=== PATIENT | male | born 1970 | race Caucasian/White ===

== ENCOUNTER → 2017-03-14 | Outpatient (CLI) | payer OTHER ==
[~2017-03-14] MED LIST: ALTACE 5MG5 MG PO; ASPI325T6 PO; COLACE 100100 MG/CAP PO; FERROUS SU325 MG/TAB PO; FOLIC ACID 40400 MCG PO; NORCO 325 MG-7.1 TAB PO; ROXICODONE 55 MG/TAB PO; TRICOR145 MG PO; TYLENOL 500MG500 MG PO; VITAMIN C500 MG; ZOCOR 40MG40 MG PO
[2017-03-14 09:05] LABS: HEMATOCRIT 41.8 % (42.0-52.0); HEMOGLOBIN 14.7 g/dl (13.5-18.0); MEAN CELL VOLUME 84 fl (80.0-100.0); MEAN CORPUSCULAR HEMOGLOBIN 30 pg (27.0-31.0); MEAN CORPUSCULAR HGB CONC 35 g/dl (33.0-37.0); MEAN PLATELET VOLUME 9.7 fl (7.4-10.4); PLATELET COUNT 247 K/mm3 (130-400); RED BLOOD COUNT 4.97 M/mm3 (4.20-5.60); WHITE BLOOD COUNT 7.8 K/mm3 (4.8-10.8)
[2017-03-14 09:25] LABS: ERYTHROCYTE SEDIMENTATION RATE 18 mm/hr (0-15)
== END ==
LOC: COL.LAB 08:25
PROVIDERS: Orthopaedic Surgery
DX: Z01.812 Encounter for preprocedural laboratory examination (principal); M25.562 Pain in left knee

== ENCOUNTER → 2018-03-05 | Outpatient (CLI) | payer BC ==
[2018-03-05 17:16] LABS: HEMATOCRIT 40.5 % (42.0-52.0); HEMOGLOBIN 14.2 g/dl (13.5-18.0); MEAN CELL VOLUME 85 fl (80.0-100.0); MEAN CORPUSCULAR HEMOGLOBIN 30 pg (27.0-31.0); MEAN CORPUSCULAR HGB CONC 35 g/dl (33.0-37.0); MEAN PLATELET VOLUME 9.7 fl (7.4-10.4); PLATELET COUNT 256 K/mm3 (130-400); RED BLOOD COUNT 4.77 M/mm3 (4.20-5.60); REDCELL DISTRIBUTION WIDTH-CV 12.7 % (11.5-14.5)
[2018-03-05 17:24] LABS: ALBUMIN 4.2 gm/dL (3.5-5.0); BILIRUBIN,TOTAL 0.3 mg/dL (0.0-1.0); C-REACTIVE PROTEIN 1.1 mg/dL (0.0-0.9); CALCIUM 9.6 mg/dL (8.4-10.2); CREATININE, serum 0.74 mg/dL (0.66-1.25); POTASSIUM 3.9 mmol/L (3.4-5.0); TOTAL PROTEIN 8.2 gm/dL (6.4-8.2)
[2018-03-05 17:40] LABS: ERYTHROCYTE SEDIMENTATION RATE 27 mm/hr (0-15)
[2018-03-05 18:09] LABS: MUCOUS Present /lpf; PH 5 (5-8); SQUAMOUS EPITHELIAL 0-2 /hpf; URINE APPEARANCE Clear; URINE BACTERIA None Seen /hpf; URINE BILIRUBIN Negative (NEGATIVE); URINE BLOOD Negative (NEGATIVE); URINE COLOR Yellow; URINE GLUCOSE 3+ (NEGATIVE); URINE KETONE Negative (NEGATIVE); URINE LEUKOCYTE ESTERASE Negative (NEGATIVE); URINE NITRATE Negative (NEGATIVE); URINE PROTEIN(semi-quant) Negative (NEGATIVE); URINE RBC 0-2 /hpf; URINE UROBILINOGEN Negative (NEGATIVE); URINE WBC 0-2 /hpf
[2018-03-05 18:20] LABS: COLLECTION METHOD CLEAN CATCH
== END ==
LOC: COL.LAB 16:18
DX: M25.562 Pain in left knee (principal)

== ENCOUNTER → 2018-07-22 | Outpatient (CLI) | payer BC ==
[2018-07-22 16:54] LABS: SYNOVIAL FL. MONONUCLEAR 82.8 % (0-75); SYNOVIAL FLUID APPEARANCE HAZY; SYNOVIAL FLUID COLOR AMBER; SYNOVIAL FLUID RBC 5000 /mm3 (0-0); SYNOVIAL FLUID WBC 239 /mm3 (200-600)
== END ==
LOC: ZCOL.LAB 16:48
PROVIDERS: Orthopaedic Surgery Sports Medicine
DX: M25.562 Pain in left knee (principal)

== ENCOUNTER → 2018-07-22 | Outpatient (CLI) | payer BC ==
[2018-07-22 17:23] LABS: BASO % 0.4 % (0.0-2.0); EOS # 0.3 (0.0-0.7); EOS % 2.8 % (0-4.0); GRAN # 6.6 (1.4-6.5); HEMOGLOBIN 15.3 g/dl (13.5-18.0); LYMPH # 2.1 (1.2-3.4); LYMPH % 21.5 % (20.0-51.0); MEAN CELL VOLUME 86 fl (80.0-100.0); MEAN CORPUSCULAR HEMOGLOBIN 30 pg (27.0-31.0); MEAN CORPUSCULAR HGB CONC 35 g/dl (33.0-37.0); MEAN PLATELET VOLUME 9.6 fl (7.4-10.4); MONO # 0.9 (0.1-0.6); PLATELET COUNT 273 K/mm3 (130-400); RED BLOOD COUNT 5.09 M/mm3 (4.20-5.60); REDCELL DISTRIBUTION WIDTH-CV 13.2 % (11.5-14.5)
[2018-07-22 17:58] LABS: ERYTHROCYTE SEDIMENTATION RATE 14 mm/hr (0-15)
== END ==
LOC: COL.LAB 16:44
PROVIDERS: Orthopaedic Surgery Sports Medicine
DX: Z01.812 Encounter for preprocedural laboratory examination (principal); M25.562 Pain in left knee

== ENCOUNTER → 2018-10-14 | Outpatient (CLI) | payer BC | LOC: COL.LAB 15:03 | DX: Z96.652 Presence of left artificial knee joint (principal) ==

== ENCOUNTER 2018-10-16 13:56 | Outpatient (RCR) | payer BC | END 2018-10-20 11:37 | disposition home or self-care (01) | LOC: MKS.ESL.PT 13:56 | DX: Z47.1 Aftercare following joint replacement surgery (principal); Z96.652 Presence of left artificial knee joint ==

== ENCOUNTER 2019-01-20 09:00 | Outpatient (RCR) | payer BC | END 2019-01-24 | disposition still patient (30) | LOC: MKS.ESL.PT | DX: Z47.1 Aftercare following joint replacement surgery (principal); Z96.652 Presence of left artificial knee joint | CPT/HCPCS: G0283-GP ==

== ENCOUNTER 2019-02-10 09:00 | Outpatient (RCR) | payer BC | END 2019-04-28 | disposition still patient (30) | LOC: MKS.ESL.PT | DX: Z47.1 Aftercare following joint replacement surgery (principal); Z96.652 Presence of left artificial knee joint ==

== ENCOUNTER 2020-04-13 09:45 | Outpatient (RCR) | payer BC | END 2020-05-30 13:54 | disposition home or self-care (01) | LOC: MKS.ESL.PT 09:45 | DX: Z96.652 Presence of left artificial knee joint (principal) ==

== ENCOUNTER 2021-01-12 08:00 | Outpatient (RCR) | payer BC | END 2021-04-10 | LOC: MKS.ESL.PT | DX: M25.561 Pain in right knee (principal) ==

== ENCOUNTER 2021-01-19 08:15 | Outpatient (RCR) | payer SELFPAY | END 2021-04-10 | LOC: MKS.ESL.PT | DX: M25.561 Pain in right knee (principal) ==

== ENCOUNTER 2021-06-22 10:00 | Outpatient (RCR) | payer BC | END 2021-07-09 08:48 | disposition home or self-care (01) | LOC: WSOT 10:00 | DX: M72.0 Palmar fascial fibromatosis [Dupuytren] (principal) ==

== ENCOUNTER 2021-07-13 14:00 | Outpatient (RCR) | payer BC | END 2021-09-14 | disposition home or self-care (01) | LOC: MKS.ESL.PT | DX: M25.561 Pain in right knee (principal); M79.661 Pain in right lower leg ==

== ENCOUNTER → 2022-03-25 | Outpatient (CLI) | payer OTHER | LOC: DIA.ED 03-21 16:38 | DX: E10.65 Type 1 diabetes mellitus with hyperglycemia (principal); I10 Essential (primary) hypertension; E10.40 Type 1 diabetes mellitus with diabetic neuropathy, unspecified | CPT/HCPCS: G0108 ==

== ENCOUNTER → 2022-05-27 | Outpatient (CLI) | payer OTHER | LOC: DIA.ED 08:54 | DX: E10.40 Type 1 diabetes mellitus with diabetic neuropathy, unspecified (principal); I10 Essential (primary) hypertension | CPT/HCPCS: G0108 ==

== ENCOUNTER 2022-12-10 09:51 | Outpatient (RCR) | payer OTHER | END 2022-12-13 | disposition home or self-care (01) | LOC: WSOT | DX: G56.00 Carpal tunnel syndrome, unspecified upper limb (principal) ==

== ENCOUNTER 2023-01-07 10:00 | Outpatient (RCR) | payer OTHER | END 2023-01-12 | disposition home or self-care (01) | LOC: WSOT | DX: G56.00 Carpal tunnel syndrome, unspecified upper limb (principal); E10.42 Type 1 diabetes mellitus with diabetic polyneuropathy ==

== ENCOUNTER → 2023-05-15 | Outpatient (RCR) | payer OTHER | END | disposition home or self-care (01) | LOC: WSOT | DX: G56.01 Carpal tunnel syndrome, right upper limb (principal) ==